=== PATIENT | male | born 1975 | race Caucasian/White ===

== ENCOUNTER 2017-12-07 21:52 | Emergency (ER) | payer SELFPAY ==
[~2017-12-07] VITALS: Ht 190.5 cm; Wt 91.0 kg
[2017-12-07 23:04] VITALS: BP 144/87; PULSE 121; RESP 18; TEMP 98.4; O2SAT 96
== END 2017-12-08 02:10 | disposition left against medical advice (07) ==
LOC: NED 21:52
DX: H92.20 Otorrhagia, unspecified ear (principal); Z53.21 Procedure and treatment not carried out due to patient leaving prior to being seen by health care provider
CPT/HCPCS: 99281

== ENCOUNTER 2017-12-23 13:51 | Emergency (ER) | payer SELFPAY ==
[~2017-12-23] VITALS: Ht 190.5 cm; Wt 91.0 kg
[2017-12-23 14:09] VITALS: BP 151/107; PULSE 117; RESP 15; TEMP 98.6; O2SAT 99
--- NOTE | 2017-12-23 14:10 | PD ---
HPI Chief Complaint: Seizure Time Seen by Provider: 14:04 Travel History International Travel<30 days: No Contact w/Intl Traveler<30days: No Traveled to known affect area: No History of Present Illness HPI This is a 42-year-old male who presents via EMS for evaluation after a witnessed seizure. The patient was reportedly working on a boat when he had a generalized tonic-clonic seizure for approximately 90 seconds which was witnessed by bystanders. The patient is currently experiencing fatigue and nausea. He denies headache, blurred vision, chest pain, shortness of breath, incontinence of stool or urine, tongue biting. He reports that he had one similar episode of seizure-like activity approximately 1 year ago he was seen at an emergency room at that time. He never followed up as an outpatient. He reports that he recently moved here from [place]. He denies any illicit drug use. He endorses drinking alcohol approximately 3 times a week. He has no other complaints at this time. [facility] Past Medical History Medical History: Denies Significant Hx Diminished Hearing: No Social History Alcohol Use: Yes (daily) Tobacco Use: Yes Substance Use: No Allergies-Medications (Allergen,Severity, Reaction): Coded Allergies: No Known Allergies (Unverified , 12/23/17) Reported Meds & Prescriptions Reported Meds & Active Scripts Active Potassium Chloride ER (Potassium Chloride) 20 Meq Tab 20 Meq PO BID 3 Days Dilantin (Phenytoin Extended) 100 Mg Cap 100 Mg PO TID Reported [seizure] Unknown Dose PO DIRECTED Review of Systems Except as stated in HPI: all other systems reviewed are Neg Physical Exam Narrative GENERAL: Well-developed well-nourished male in no acute distress SKIN: Warm and dry. HEAD: Atraumatic. Normocephalic. EYES: Pupils equal and round. No scleral icterus. No injection or drainage. ENT: No nasal bleeding or discharge. Mucous membranes pink and moist. NECK: Trachea midline. No JVD. CARDIOVASCULAR: Regular rate and rhythm. No murmur appreciated. RESPIRATORY: No accessory muscle use. Clear to auscultation. Breath sounds equal bilaterally. GASTROINTESTINAL: Abdomen soft, non-tender, nondistended. Hepatic and splenic margins not palpable. MUSCULOSKELETAL: No obvious deformities. No clubbing. No cyanosis. No edema. NEUROLOGICAL: Awake and alert. No obvious cranial nerve deficits. Motor grossly within normal limits. Normal speech. PSYCHIATRIC: Appropriate mood and affect; insight and judgment normal. Data Data Last Documented VS Vital Signs Date Time Temp Pulse Resp B/P (MAP) Pulse Ox O2 Delivery O2 Flow Rate FiO2 12/23/17 14:13 98.6 119 14 151/107 (122) 99 Room Air Orders Orders Complete Blood Count With Diff (12/23/17 14:09) Basic Metabolic Panel (Bmp) (12/23/17 14:09) Drug Screen, Random Urine (12/23/17 14:09) Electrocardiogram (12/23/17 ) Ct Brain W/O Iv Contrast(Rout) (12/23/17 ) Blood Glucose (12/23/17 14:09) Ecg Monitoring (12/23/17 14:09) Iv Access Insert/Monitor (12/23/17 14:09) Oximetry (12/23/17 14:09) Sodium Chloride 0.9% Flush (Ns Flush) (12/23/17 14:15) Magnesium (Mg) (12/23/17 14:09) Phenytoin Inj (Dilantin Inj) (12/23/17 15:00) Magnesium Sulfate 1 Gm Premix (Magnesium (12/23/17 15:15) Potassium Chloride (Kcl) (12/23/17 15:15) Sodium Chlor 0.9% 1000 Ml Inj (Ns 1000 M (12/23/17 15:03) Sodium Chlor 0.9% 1000 Ml Inj (Ns 1000 M (12/23/17 15:10) Ed Discharge Order (12/23/17 15:51) Labs Laboratory Tests Test 12/23/17 14:15 White Blood Count 4.2 TH/MM3 Red Blood Count 4.14 MIL/MM3 Hemoglobin 13.7 GM/DL Hematocrit 39.9 % Mean Corpuscular Volume 96.5 FL Mean Corpuscular Hemoglobin 33.2 PG Mean Corpuscular Hemoglobin Concent 34.4 % Red Cell Distribution Width 14.4 % Platelet Count 159 TH/MM3 Mean Platelet Volume 9.0 FL Neutrophils (%) (Auto) 73.1 % Lymphocytes (%) (Auto) 12.9 % Monocytes (%) (Auto) 12.8 % Eosinophils (%) (Auto) 0.3 % Basophils (%) (Auto) 0.9 % Neutrophils # (Auto) 3.1 TH/MM3 Lymphocytes # (Auto) 0.5 TH/MM3 Monocytes # (Auto) 0.5 TH/MM3 Eosinophils # (Auto) 0.0 TH/MM3 Basophils # (Auto) 0.0 TH/MM3 CBC Comment DIFF FINAL Differential Comment Blood Urea Nitrogen 17 MG/DL Creatinine 2.27 MG/DL Random Glucose 171 MG/DL Calcium Level 9.0 MG/DL Magnesium Level 1.1 MG/DL Sodium Level 131 MEQ/L Potassium Level 3.1 MEQ/L Chloride Level 96 MEQ/L Carbon Dioxide Level 18.1 MEQ/L Anion Gap 17 MEQ/L Estimat Glomerular Filtration Rate 32 ML/MIN MDM Medical Decision Making Medical Screen Exam Complete: Yes Emergency Medical Condition: Yes Medical Record Reviewed: Yes Differential Diagnosis Seizure, syncope, hypoglycemia, electrolyte abnormality, intracranial mass, epilepsy Narrative Course The patient was placed on ECG monitoring pulse oximetry. 12-lead EKG was obtained. Lab work, CT the brain has been ordered. CT the brain is normal. CBC is unremarkable. BMP reveals a sodium 131, potassium 3.1, chloride 96, carbon dioxide 18.1, anion gap 17, likely secondary to lactic acidosis from seizure, BUN is normal, creatinine is 2.27, glucose 171, magnesium 1.1. The patient was given 2 L of IV fluids. He was given 1 g of magnesium IV, he was given 40 mEq oral potassium chloride. Given that this is a second seizure, he was given a loading dose of Dilantin and he will be started on a low-dose Dilantin. Recommended follow-up with a neurologist for further evaluation and treatment. He was monitored here for some time with no additional seizure activity. He is stable for discharge. Diagnosis Primary Impression: Seizure Additional Impressions: Hypomagnesemia Hypokalemia Referrals: Brian Long MD Additional Instructions: No driving, operating heavy machinery, climbing ladders or climbing the heights for 6 months from your most recent seizure which is today. Medication as prescribed. Avoid alcohol use. Avoid illicit drug use. Follow-up with a neurologist such as Dr. Long for further evaluation. Return for any emergent medical conditions. Med/Other Pt SpecificInfo: Prescription(s) given Scripts Potassium Chloride ER (Potassium Chloride ER) 20 Meq Tab 20 MEQ PO BID for Electrolyte Replacement for 3 Days, #6 TAB 0 Refills Prov: Dorian Reece MD 12/23/17 Phenytoin Extended (Dilantin) 100 Mg Cap 100 MG PO TID for Control Seizures, #90 CAP 0 Refills Prov: Dorian Reece MD 12/23/17 Disposition: 01 DISCHARGE HOME Condition: Stable Maicol Perez Dec 23, 2017 14:10
[2017-12-23 14:12] VITALS: O2SAT 98
[2017-12-23 14:13] VITALS: BP 151/107; PULSE 119; RESP 14; TEMP 98.6; O2SAT 99
[2017-12-23] MEDS ORDERED: SODIUM CHLORIDE 0.9% FLUSH 10 ML FLUSH IVF PRN (14:15)
[2017-12-23] MEDS ORDERED: seizure PO (14:17)
[2017-12-23 14:31] LABS: AUTOMATED NEUTROPHIL # 3.1 TH/MM3 (1.8-7.7); BASOPHIL % 0.9 % (0.0-2.0); EOSINOPHIL % 0.3 % (0.0-4.0); HEMATOCRIT 39.9 % (39.0-51.0); HEMOGLOBIN 13.7 GM/DL (13.0-17.0); LYMPH % 12.9 % (9.0-44.0); LYMPHOCYTE # 0.5 TH/MM3 (1.0-4.8); MEAN CELL VOLUME 96.5 FL (80.0-100.0); MEAN CORPUSCULAR HEMOGLOBIN 33.2 PG (27.0-34.0); MEAN CORPUSCULAR HGB CONC 34.4 % (32.0-36.0); MONO % 12.8 % (0.0-8.0); MONOCYTE # 0.5 TH/MM3 (0-0.9); NEUT % 73.1 % (16.0-70.0); PLATELET COUNT 159 TH/MM3 (150-450); RED BLOOD COUNT 4.14 MIL/MM3 (4.50-5.90); RED CELL DISTRIBUTION WIDTH 14.4 % (11.6-17.2); WHITE BLOOD COUNT 4.2 TH/MM3 (4.0-11.0)
--- NOTE | 2017-12-23 14:36 | RADRPT ---
EXAM DATE/TIME: 12/23/2017 14:24 [facility] COMPARISON: No previous studies available for comparison. INDICATIONS : Seizure. RADIATION DOSE: 56.35 CTDIvol (mGy) MEDICAL HISTORY : Seizures. SURGICAL HISTORY : None. ENCOUNTER: Initial ACUITY: 1 day PAIN SCALE: 0/10 LOCATION: cranial TECHNIQUE: Multiple contiguous axial images were obtained of the head. Using automated exposure control and adj ustment of the mA and/or kV according to patient size, radiation dose was kept as low as reasonably a chievable to obtain optimal diagnostic quality images. DICOM format image data is available electro nically for review and comparison. FINDINGS: CEREBRUM: The ventricles are normal for age. No evidence of midline shift, mass lesion, hemorrhage or acute in farction. No extra-axial fluid collections are seen. POSTERIOR FOSSA: The cerebellum and brainstem are intact. The 4th ventricle is midline. The cerebellopontine angle i s unremarkable. EXTRACRANIAL: The visualized portion of the orbits is intact. SKULL: The calvaria is intact. No evidence of skull fracture. CONCLUSION: 1. Negative noncontrast CT brain. Jorge L Rangel MD on December 23, 2017 at 14:34 Board Certified Radiologist. This report was verified electronically.
[2017-12-23 14:52] LABS: BICARBONATE 18.1 MEQ/L (21.0-32.0); CREATININE 2.27 MG/DL (0.60-1.30); MAGNESIUM 1.1 MG/DL (1.5-2.5)
[2017-12-23] MEDS ORDERED: PHENYTOIN INJ 1,000 MG in SODIUM CHLORIDE 0.9% INJ 100 ML IV ONE (15:00)
[2017-12-23] MEDS ORDERED: SODIUM CHLOR 0.9% 1000 ML INJ 1,000 ML IV SCH ×2 (15:03→15:10)
[2017-12-23] MEDS ORDERED: MAGNESIUM SULFATE 1 GM PREMIX 100 ML IV ONE (15:15)
[2017-12-23] MEDS ORDERED: POTASSIUM CHLORIDE 20 MEQ CONTROLLED RELEASE TAB PO ONE (15:15)
--- NOTE | 2017-12-23 15:34 | PD ---
Data Data Last Documented VS Vital Signs Date Time Temp Pulse Resp B/P (MAP) Pulse Ox O2 Delivery O2 Flow Rate FiO2 12/23/17 14:13 98.6 119 14 151/107 (122) 99 Room Air Orders Orders Complete Blood Count With Diff (12/23/17 14:09) Basic Metabolic Panel (Bmp) (12/23/17 14:09) Drug Screen, Random Urine (12/23/17 14:09) Electrocardiogram (12/23/17 ) Ct Brain W/O Iv Contrast(Rout) (12/23/17 ) Blood Glucose (12/23/17 14:09) Ecg Monitoring (12/23/17 14:09) Iv Access Insert/Monitor (12/23/17 14:09) Oximetry (12/23/17 14:09) Sodium Chloride 0.9% Flush (Ns Flush) (12/23/17 14:15) Magnesium (Mg) (12/23/17 14:09) Phenytoin Inj (Dilantin Inj) (12/23/17 15:00) Magnesium Sulfate 1 Gm Premix (Magnesium (12/23/17 15:15) Potassium Chloride (Kcl) (12/23/17 15:15) Sodium Chlor 0.9% 1000 Ml Inj (Ns 1000 M (12/23/17 15:03) Sodium Chlor 0.9% 1000 Ml Inj (Ns 1000 M (12/23/17 15:10) Labs Laboratory Tests Test 12/23/17 14:15 White Blood Count 4.2 TH/MM3 Red Blood Count 4.14 MIL/MM3 Hemoglobin 13.7 GM/DL Hematocrit 39.9 % Mean Corpuscular Volume 96.5 FL Mean Corpuscular Hemoglobin 33.2 PG Mean Corpuscular Hemoglobin Concent 34.4 % Red Cell Distribution Width 14.4 % Platelet Count 159 TH/MM3 Mean Platelet Volume 9.0 FL Neutrophils (%) (Auto) 73.1 % Lymphocytes (%) (Auto) 12.9 % Monocytes (%) (Auto) 12.8 % Eosinophils (%) (Auto) 0.3 % Basophils (%) (Auto) 0.9 % Neutrophils # (Auto) 3.1 TH/MM3 Lymphocytes # (Auto) 0.5 TH/MM3 Monocytes # (Auto) 0.5 TH/MM3 Eosinophils # (Auto) 0.0 TH/MM3 Basophils # (Auto) 0.0 TH/MM3 CBC Comment DIFF FINAL Differential Comment Blood Urea Nitrogen 17 MG/DL Creatinine 2.27 MG/DL Random Glucose 171 MG/DL Calcium Level 9.0 MG/DL Magnesium Level 1.1 MG/DL Sodium Level 131 MEQ/L Potassium Level 3.1 MEQ/L Chloride Level 96 MEQ/L Carbon Dioxide Level 18.1 MEQ/L Anion Gap 17 MEQ/L Estimat Glomerular Filtration Rate 32 ML/MIN MDM Supervised Visit with [facility]: Yes Narrative Course I, Dr. Reece, have reviewed the advance practice practitioner's documentation and am in agreement, met with the patient face to face, made the diagnosis, and the medical decision making was done by me. *My assessment and Findings: This patient is here for second tonic-clonic seizure. He had workup after his first but no medication was recommended. Now that he has had his second I am going to Dilantin load him and start him on Dilantin. I do not believe it is substance abuse related. We are going to watch him for a while. He does have some electrolyte abnormalities that we are correcting. He will need primary care and urology follow-up. May need outpatient EEG. His brain CT is negative. His potassium and magnesium are low and are being replaced. He is getting 2 L IV fluid. Dorian Reece MD Dec 23, 2017 15:34
[2017-12-23] MEDS ORDERED: DILA100C PO (15:50)
[2017-12-23] MEDS ORDERED: POTA-163 PO (15:50)
[2017-12-23 16:47] VITALS: BP 145/85; PULSE 85; RESP 14; O2SAT 99
--- NOTE | 2017-12-24 13:41 | EKG ---
Date Performed: 12/23/2017 Time Performed: 14:49:55 PTAGE: 42 years EKG: SINUS TACHYCARDIA ABNORMAL RHYTHM ECG NO PREVIOUS TRACING DOCTOR: Swathi Love Interpretating Date/Time 12/24/2017 13:39:33
== END 2017-12-23 16:49 | disposition home or self-care (01) ==
LOC: NEPC 13:51
DX: G40.409 Other generalized epilepsy and epileptic syndromes, not intractable, without status epilepticus (principal); E83.42 Hypomagnesemia; E87.6 Hypokalemia; Z72.0 Tobacco use
CPT/HCPCS: 70450; 80048; 80307; 83735; 85025; 93005; 96365; 96367; 99284; J1165; J3475; J7030